=== PATIENT | female | born 1980 | race Asian ===

== ENCOUNTER 2018-04-08 05:35 | Inpatient (IN) | payer OTHER ==
--- NOTE | 2018-04-07 19:07 | GHP ---
DATE OF ADMISSION: 04/08/2018 The patient is slated for surgery on 04/08/2018 on the obstetric service. HISTORY: Upon admission, the patient is a 37-year-old, G2, P1, at 39 weeks' gestation with an estima arben due date of 04/15/2018, who presents for scheduled repeat section with bilateral salping ectomies. The patient has been counseled about the risks and benefits of surgery and the options as far as sterilization. The patient wants to proceed with the planned and has decided to pro ceed with salpingectomies for cancer reduction risk for the future. Consent form signed. CARE: The patient has been followed with [facility] since 1st trimester with an ultrasound at 9 weeks that was consistent with dates. The patient has had an uncomplicated . The patient had a level 2 ultrasound with specialists due to advanced maternal age. The patient h ad normal anatomy clearance at 19 weeks. The patient had a low-lying placenta at that time 1.5 cm fr om the internal os. She was advised it was not necessary to confirm that there was resolution of darci t unless she was interested in vaginal . The patient received a Tdap vaccination on March 03 and her flu shot on February 18. LABS: Maternal blood type O positive with negative antibody screen. RPR nonreactive. Rube lla immune. Hepatitis B surface antigen negative. HIV negative. Varicella immune. Urinalysis and culture negative. Urine drug screen negative. Initial urinalysis was positive for GBS. Gonorrhea a nd chlamydia were negative. Pap smear normal. Verifi testing was negative with MSAFP normal. Hemato crit between 36% and 38% the whole . 1-hour Glucola normal. PAST MEDICAL HISTORY: Only keloid formation in the area of the previous . The patient also was a carrier of hemoglobinopathy, but the father has been tested and was not a carrier. Patient wi th a low BMI at the beginning of the . PAST SURGICAL HISTORY: section in 2017, gum surgery in 2009. PAST OBSTETRIC HISTORY: The patient delivered in August 2016 with a viable male at 6 pounds 12 ounces a t 40 weeks' gestation after 28 hours of labor. The patient progressed to 8 cm dilation, but there wa s mal presentation and intolerance that led to section. The patient delivered at [facility]. ALLERGIES: The patient has no known drug allergies. CURRENT MEDICATIONS: Only vitamins and Dha. SOCIAL HISTORY: The patient is , lives with her and son. The patient is a nonsmoker. No alcohol or drug use. 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 PHYSICAL EXAM: GENERAL: The patient is a well-developed, well-nourished female from [facility]. Kirsten ibrahim is in no physical distress. VITALS: Weight 120 pounds. Clinically afebrile with a blood pressure 98/60. Urine is negative for protein and glucose. LUNGS: Clear to auscultation bilaterally. CARD IOVASCULAR: Regular rate and rhythm. ABDOMEN: Shows a gravid uterus, nontender with fundal height at 39 cm and heart tones in the 140s. The patient has a dominant thick keloid scar over the C- section site. EXTREMITIES: Nontender. No edema. PELVIC: Deferred. ASSESSMENT: Intrauterine at 39 weeks' gestation for a scheduled repeat section. The patient desires permanent sterilization and wants cancer risk reduction with having bilateral julius pingectomies. Positive GBS bacteria early in . We will use usual preoperative antibiotics before the . Plan is to remove the keloid scar at the time of surgery. PLAN: Patient will present on 04/08/2018 for a scheduled . /[id number]/MODL
[2018-04-08] MEDS ORDERED: ceFAZolin 2 GM/DEXTROSE 100 ML IV ONE (05:51)
[2018-04-08] MEDS ORDERED: CITRIC ACID/SODIUM CITRATE 30 ML UDCUP PO ONE (05:51)
[2018-04-08] MEDS ORDERED: LR 500 ML IV ONE (05:51)
[2018-04-08] MEDS ORDERED: LR 1,000 ML IV SCH (05:51)
[2018-04-08 06:11] LABS: PLATELET COUNT 330 10^3/uL (150-400)
[2018-04-08] MEDS ORDERED: morphINE PF 10 MG/10 ML INJ ONE (07:32)
[2018-04-08] MEDS ORDERED: BUPIVACAINE/DEXTROSE 7.5MG/ML 2 ML SPINAL AMP SP ONE (07:33)
--- NOTE | 2018-04-08 07:39 | PDANEPAE ---
ANE History of Present Illness Repeat ANE Past Medical History - Cardiovascular History Hx Hypertension: No - Pulmonary History Hx Asthma/Reactive Airway Disease: No Hx Sleep Apnea: No Sleep Apnea Screening Result - Last Documented: Negative - Neurologic History Hx Seizures: No ANE Review of Systems Review of Systems: ANE Patient History - Allergies Allergies/Adverse Reactions: No Known Allergies Allergy (Unverified 03/28/18 16:36) - Home Medications Home medications: home medication list seen and reviewed - NPO status NPO Status: no food or drink >8 hours NPO Since - Liquids (Date): 04/07/18 NPO Since - Liquids (Time): 21:00 NPO Since - Solids (Date): 04/07/18 NPO Since - Solids (Time): 21:00 - Anes Hx Anes Hx: no prior problems (Prior spinal and GA without diff) - Smoking Hx Smoking Status: Never smoked ANE Labs/Vital Signs - Labs Result Diagrams: 04/08/18 05:58 - Vital Signs Blood Pressure: 106/71 Heart Rate: 84 Respiratory Rate: 18 O2 Sat (%): 97 Height: 152.4 cm Weight: 54.431 kg ANE Physical Exam - Airway Neck exam: FROM Mallampati Score: Class 2 Mouth exam: normal dental/mouth exam - Pulmonary Pulmonary: no respiratory distress - Cardiovascular Cardiovascular: regular rate and rhythym - ASA Status ASA Status: II ANE Anesthesia Plan Anesthesia Plan: spinal (With PF duramorph)
[2018-04-08] MEDS ORDERED: fentaNYL 100 MCG/2 ML INJ ONE (08:40)
[2018-04-08] MEDS ORDERED: fentaNYL 100 MCG/2 ML INJ IVP PRN (08:59)
[2018-04-08] MEDS ORDERED: ONDANSETRON 4 MG/2 ML VIAL IVP PRN (08:59)
--- NOTE | 2018-04-08 09:59 | POSTANESTH ---
Post Anesthetic Evaluation Cardiovascular Status: Similar to Pre-Op Cond Respiratory Status: Similar to Pre-op Cond. Level of Consciousness/Mental Status: Alert and Oriented Pain Control: Adequate, Prn Tx Ordered Nausea/Vomiting Control: Adequate, Prn Tx Ordered Complications Possibly Related to Anesthesia: None Noted
[2018-04-08] MEDS ORDERED: LACTULOSE 20 GM/30 ML UDCUP PO PRN (10:01)
[2018-04-08] MEDS ORDERED: MAGNESIUM HYDROXIDE 30 ML UDCUP PO PRN (10:01)
[2018-04-08] MEDS ORDERED: BISACODYL 10 MG SUPP PR PRN (10:01)
[2018-04-08] MEDS ORDERED: POLYETHYLENE GLYCOL 3350 17 GM PKT PO PRN (10:01)
--- NOTE | 2018-04-08 10:02 | PDHPUP ---
History & Physical Update H&P update statement: This history and physical update is based on an assessment of the patient which was completed after admission or registration (within 24 hours), but prior to the surgery/procedure. H&P update: no change in patient's condition since H&P completed
--- NOTE | 2018-04-08 10:05 | OBDEL ---
Info Type: Repeat Presentation at Delivery: Transverse Lie (then) L&D Analgesia/Anesthesia Type: Spinal GBS+: Yes - Care Provider [employer]/TERRA COTTA SETTER: Deb Peñaloza Operative Report - Delivery Pre-op Diagnoses: IUP at 39 wks, PCS, declines ANNE, undesired fertility Post-op Diagnoses: same History of Prior Section: Yes Number of Prior Sections: 1 Nulliparous Prior to Delivery: No Indications for Prior Section: Non-reas. Status Indications for Current Section: Elective/Repeat Procedure: Scheduled, Low Transverse, Other (Specify) (bilateral salpingectomies with electrocautery - ligasure) Surgeon: Daria Enriquez Agronomy Advisor[facility] Anesthesiologist: Montana Garcia Complications: Nucal Cord (x2, complicated lie with right foot presenting and right arm, left foot up high by head. Needed some manipulation to bring both feet for delivery and then delivered, uncompilicated breech. Vigorour immed after , one min delayed cord clamp, urinated on field. clear fluid) Findings: thick dense keloid on skin - resected dense scar internally at each level above uterus. uterus/tubes/ov not scarred. normal hysterotomy - closed with 2 layers. no extension normal uterus, tubes and ovaries. ligasure used for BS without problems. clear fluid. dense scar at fascia and under skin Specimen(s)/Path: Fallopian Tube(s) (x2) IV Fluid (ml): 1,800 EBL: 1000 Data ZEESHAN: 04/15/18 Gestational Age: 39 week(s) and 0 day(s) [facility] Delivery Date: 04/08/18 Delivery Time: 08:34 Sex of Infant: Male Score (1 Min): 7 Score (5 Min): 8 ICD10 Worksheet Patient Problems: Problems Problem Status Onset BILATERAL SALPINGECTOMY Acute S/P repeat low transverse Acute - ICD10 Problem Qualifiers (1) S/P repeat low transverse
[2018-04-08] MEDS: KETOROLAC 30 MG/1 ML SDV IVP SCH ×2 (12:22→18:47)
--- NOTE | 2018-04-08 17:59 | OBPP ---
Progress Note Assessment/Plan: Assessment: POD 1/2 s/p RCS, BS keloid scar revision Plan: Doing well. routine care 04/08/18 17:08 Subjective/ Course: 04/08/18 18:19 Pt doing well. No nausea - rosibel liquids and had some lunch. Baby has tried to latch. Pain is low - getting toradol. has sat up in bed Objective: 04/08/18 05:58 Patient ABO/Rh O POSITIVE 04/08/18 05:58 Temp Pulse Resp BP Pulse Ox 36.4 C 76 15 94/54 L 96 04/08/18 16:00 04/08/18 16:00 04/08/18 16:00 04/08/18 16:00 04/08/18 16:00 Uterine Position/Fundal Height: Umbilicus -2 Uterine Tone: Firm Physical Exam - Physical Exam Abdomen: non-tender (approp post op tenderness), soft, dressing (CDI) Extremities: non-tender, pedal edema (none) Skin: normal color, warm/dry Neuro/Psych: alert, normal mood/affect
[2018-04-08] MEDS: ACETAMINOPHEN 325 MG TAB PO SCH ×2 (19:07→22:47)
[2018-04-08] MEDS: SENNOSIDES/DOCUSATE SODIUM TAB PO SCH (22:48)
[2018-04-09] MEDS: ACETAMINOPHEN 325 MG TAB PO SCH ×4 (00:36→20:05)
[2018-04-09] MEDS: KETOROLAC 30 MG/1 ML SDV IVP SCH ×2 (00:36→06:47)
[2018-04-09] MEDS ORDERED: KETOROLAC 30 MG/1 ML SDV IVP ONE (06:30)
[2018-04-09] MEDS: oxyCODONE IR 5 MG TAB PO PRN ×3 (06:32→18:54)
[2018-04-09] MEDS: SENNOSIDES/DOCUSATE SODIUM TAB PO SCH ×2 (09:30→22:48)
--- NOTE | 2018-04-09 10:22 | OBPP ---
Progress Note Assessment/Plan: Assessment: 37 P2 POD#1 s/p R-C/S - doing well. Mild anemia. Plan: Continue routine post op cares. Encourage ambulation. Yeni Salcedo MD, FACOG [facility] 04/09/18 11:01 Subjective/ Course: 04/08/18 18:19 Pt doing well. No nausea - rosibel liquids and had some lunch. Baby has tried to latch. Pain is low - getting toradol. Has sat up in bed 04/09/18 11:05 Doing well. Ambulating without dizziness. Rosibel reg diet without nausea. Voiding fine after urinary catheter removed. going well. Objective: 04/09/18 00:45 Patient ABO/Rh O POSITIVE 04/08/18 05:58 Temp Pulse Resp BP Pulse Ox 36.6 C 78 16 98/53 L 96 04/09/18 02:51 04/09/18 05:00 04/09/18 05:00 04/09/18 02:51 04/09/18 05:00 gen - pleasant, NAD CV - RRR chest - CTAB abd - soft, + BS, inc - c/d/i with steri strips in place. fundus at u-1, NT ext - no calf tenderness, no edema Uterine Position/Fundal Height: Umbilicus -1 Uterine Tone: Firm
[2018-04-09] MEDS: FERRO-SEQUELS 65 MG TAB.ER PO SCH (13:03)
[2018-04-09] MEDS: IBUPROFEN 600 MG TAB PO SCH ×2 (13:03→20:05)
[2018-04-10] MEDS: ACETAMINOPHEN 325 MG TAB PO SCH ×4 (02:16→20:20)
[2018-04-10] MEDS: IBUPROFEN 600 MG TAB PO SCH ×4 (02:17→20:21)
[2018-04-10] MEDS: oxyCODONE IR 5 MG TAB PO PRN ×4 (08:29→20:21)
[2018-04-10] MEDS: FERRO-SEQUELS 65 MG TAB.ER PO SCH (08:30)
[2018-04-10] MEDS: SENNOSIDES/DOCUSATE SODIUM TAB PO SCH ×2 (09:00→20:20)
--- NOTE | 2018-04-10 11:15 | OBPP ---
Progress Note Assessment/Plan: Assessment: 1) s/p RCS POD #2 - pt is stable 2) Anemia - pt is asymptomatic Plan: Continue routine pp care Encourage ambulation support prn Plan for d/c home in am 04/11/18 04/10/18 11:12 Subjective/ Course: 04/08/18 18:19 Pt doing well. No nausea - rosibel liquids and had some lunch. Baby has tried to latch. Pain is low - getting toradol. Has sat up in bed 04/09/18 11:05 Doing well. Ambulating without dizziness. Rosibel reg diet without nausea. Voiding fine after urinary catheter removed. going well. 04/10/18 11:13 Pt seen and examined. Doing well with no complaints. Pain is well controlled. Pt is OOB, rosibel regular diet, voiding and BM x 3. Denies any f/c/n/v/CP or SOB. BF is going well, working with . Objective: 04/09/18 00:45 Patient ABO/Rh O POSITIVE 04/08/18 05:58 Temp Pulse Resp BP Pulse Ox 36.2 C 80 14 88/54 L 95 04/10/18 08:00 04/10/18 08:00 04/10/18 08:00 04/10/18 08:00 04/10/18 08:00 Uterine Position/Fundal Height: Umbilicus -2 Uterine Tone: Firm Physical Exam - Physical Exam General Appearance: WD/WN, alert, no apparent distress Respiratory: lungs clear, normal breath sounds Cardiac/Chest: regular rate, rhythm Abdomen: normal bowel sounds, non-tender, soft, flatus (+), incision (C/D/I with steri strips) Extremities: non-tender, normal inspection Skin: normal color, warm/dry Neuro/Psych: alert, normal mood/affect, oriented x 3
[2018-04-11] MEDS: oxyCODONE IR 5 MG TAB PO PRN ×4 (00:08→12:08)
[2018-04-11] MEDS: ACETAMINOPHEN 325 MG TAB PO SCH ×3 (02:20→08:18)
[2018-04-11] MEDS: IBUPROFEN 600 MG TAB PO SCH ×3 (02:20→08:18)
[2018-04-11 08:26] VITALS: BP 88/56
[2018-04-11] MEDS ORDERED: FERRO-SEQUELS 65 MG TAB.ER PO SCH (09:00)
--- NOTE | 2018-04-11 10:25 | OBPP ---
Progress Note Assessment/Plan: Assessment: Plan: Subjective/ Course: 04/08/18 18:19 Pt doing well. No nausea - rosibel liquids and had some lunch. Baby has tried to latch. Pain is low - getting toradol. Has sat up in bed 04/09/18 11:05 Doing well. Ambulating without dizziness. Rosibel reg diet without nausea. Voiding fine after urinary catheter removed. going well. 04/10/18 11:13 Pt seen and examined. Doing well with no complaints. Pain is well controlled. Pt is OOB, rosibel regular diet, voiding and BM x 3. Denies any f/c/n/v/CP or SOB. BF is going well, working with . Objective: 04/09/18 00:45 Patient ABO/Rh O POSITIVE 04/08/18 05:58 Temp Pulse Resp BP Pulse Ox 36.2 C 71 16 88/56 L 96 04/11/18 08:25 04/11/18 08:25 04/11/18 08:25 04/11/18 08:25 04/11/18 08:25
--- NOTE | 2018-04-11 10:25 | OBGCSDC ---
General Delivery Information - General Info : 2 Para: 2 Abortions: 0 Type: Repeat L&D Analgesia/Anesthesia Type: Spinal Admission Date: 04/08/18 Labs: Patient ABO/Rh O POSITIVE 04/08/18 05:58 Hct 30.1 % (38.0-47.0) L 04/09/18 00:45 - Hospital Course : 04/08/18 18:19 Pt doing well. No nausea - olya liquids and had some lunch. Baby has tried to latch. Pain is low - getting toradol. Has sat up in bed 04/09/18 11:05 Doing well. Ambulating without dizziness. Olya reg diet without nausea. Voiding fine after urinary catheter removed. going well. 04/10/18 11:13 Pt seen and examined. Doing well with no complaints. Pain is well controlled. Pt is OOB, olya regular diet, voiding and BM x 3. Denies any f/c/n/v/CP or SOB. BF is going well, working with . - Delivery Providers Surgeon: Daria Enriquez Cancer Registrar: Yeni Salcedo (proctor[facility]) Anesthesiologist: Montana Garcia - Delivery Number of Prior Sections: 1 Indications for Current Section: Elective/Repeat Surgical Procedures: Scheduled, Low Transverse, Other (Specify) (bilateral salpingectomies with electrocautery - ligasure) Intra-op Complications: Nucal Cord (x2, complicated lie with right foot presenting and right arm, left foot up high by head. Needed some manipulation to bring both feet for delivery and then delivered, uncompilicated breech. Vigorour immed after , one min delayed cord clamp, urinated on field. clear fluid) EBL: 1000 Data ZEESHAN: 04/15/18 Gestational Age: 39 week(s) and 3 day(s) [facility] Delivery Date: 04/08/18 Delivery Time: 08:34 Sex of Infant: Male Weight (gm): 3320 kg Score (1 Min): 7 Score (5 Min): 8
== END 2018-04-11 12:15 | disposition home or self-care (01) | DRG 785 ==
LOC: FLD 05:35 → FOB 11:55
PROVIDERS: ADMIT Obstetrics & Gynecology; ATTEND Obstetrics & Gynecology
DX: O34.211 Maternal care for low transverse scar from previous cesarean delivery (principal); O69.81X0 Labor and delivery complicated by cord around neck, without compression, not applicable or unspecified; O32.8XX0 Maternal care for other malpresentation of fetus, not applicable or unspecified; L91.0 Hypertrophic scar; Z30.2 Encounter for sterilization; Z37.0 Single live birth; Z3A.39 39 weeks gestation of pregnancy
CPT/HCPCS: J0690; J1885; J2274; J3010